=== PATIENT | male | born 1980 | race Caucasian/White ===

== ENCOUNTER 2017-01-02 04:37 | Emergency (ER) | payer OTHER ==
[2017-01-02 04:37] VITALS: BMI 25.8
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
[2017-01-02 04:50] VITALS: BP 123/66; PULSE 85; RESP 18; TEMP 97.6; O2SAT 98
== END 2017-01-02 05:46 | disposition left against medical advice (07) ==
LOC: ED 04:37
DX: M54.9 Dorsalgia, unspecified (principal)

== ENCOUNTER 2017-03-11 23:02 | Emergency (ER) | payer MEDICAID, OTHER ==
[2017-03-11 23:02] VITALS: BMI 25.8
[2017-03-11 23:18] VITALS: TEMP 97.9
[2017-03-12] MEDS ORDERED: Naproxen 550 mg Tab PO STA (00:14)
--- NOTE | 2017-03-12 00:51 | ED PDOC ---
Arrival/HPI - General Chief Complaint: Chest Pain Time Seen by Provider: 03/11/17 23:58 Historian: Patient - History of Present Illness Narrative History of Present Illness (Text): 03/12/17 01:04 36 yo M presents to the ER for atraumatic nonradiating L lower chest pain since 8 pm, worse with movement and with palpation, reports that he did move a piano today. Denies SOB, fever, chills, cough, abd pain, N/V, neck pain, back pain, leg pain / swelling, head injury. Patient has no other complaints. PMD none Past Medical History - Provider Review Nursing Documentation Reviewed: Yes - Infectious Disease Hx of Infectious Diseases: None - Past Medical History Past Medical History: No Previous - Cardiac Hx Cardiac Disorders: No Hx Hypertension: No - Pulmonary Hx Respiratory Disorders: No Hx Tuberculosis: No - Neurological Hx Neurological Disorder: No Hx Seizures: No - HEENT Hx HEENT Disorder: No - Renal Hx Renal Disorder: No - Endocrine/Metabolic Hx Endocrine Disorders: No - Hematological/Oncological Hx Blood Disorders: No Hx Cancer: No - Integumentary Hx Dermatological Disorder: No - Musculoskeletal/Rheumatological Hx Musculoskeletal Disorders: No Hx Falls: No - Gastrointestinal Hx Gastrointestinal Disorders: No - Genitourinary/Gynecological Hx Genitourinary Disorders: No Hx Sexually Transmitted Diseases: No - Psychiatric Hx Depression: Yes Hx Substance Use: Yes - Past Surgical History Past Surgical History: No Previous - Anesthesia Hx Anesthesia: No - Suicidal Assessment Feels Threatened In Home Enviroment: No Family/Social History - Physician Review Nursing Documentation Reviewed: Yes Family/Social History: No Known Family HX Smoking Status: Current Some Days Smoker Hx Alcohol Use: Yes (4 24oz Beers) Hx Substance Use: Yes Substance used: Marijuana / crack Hx Substance Use Treatment: No Allergies/Home Meds Allergies/Adverse Reactions: Allergies No Known Allergies Allergy (Verified 03/11/17 23:19) Home Medications: Home Meds Medication Instructions Recorded Confirmed No Known Home Med 03/11/17 03/11/17 Review of Systems - Review of Systems Constitutional: Normal. absent: Fatigue, Weight Change, Fevers Respiratory: Normal. absent: SOB, Cough, Sputum Cardiovascular: Normal, Chest Pain. absent: Palpitations, Edema Musculoskeletal: Normal. absent: Arthralgias, Back Pain, Neck Pain Skin: Normal. absent: Rash, Pruritis, Skin Lesions Physical Exam - Physical Exam Narrative Physical Exam (Text): 03/12/17 01:01 GENERAL APPEARANCE: Patient is sleeping comfortably but is easily arousable, alert, oriented x 3, in no acute distress. SKIN: Warm, dry; (-) cyanosis. EYES: (-) conjunctival pallor. ENMT: Mucous membranes moist. NECK: (-) tenderness, (-) stiffness, (-) lymphadenopathy, (-) JVD. CHEST AND RESPIRATORY: (-) rash, (+) chest wall tenderness to the L lower chest with no edema and no ecchymosis. Lungs: (-) rales, (-) rhonchi, (-) wheezes, (-) rub; breath sounds equal bilaterally. HEART AND CARDIOVASCULAR: (-) irregularity; (-) murmur, (-) gallop, (-) rub. ABDOMEN AND GI: Soft; (-) distention, (-) tenderness, (-) palpable pulsatile mass. EXTREMITIES: (-) deformity; (-) edema, (-) calf tenderness. (+) distal pulses. NEURO AND PSYCH: Mental status as above. Cranial nerves grossly intact; strength symmetric. Vital Signs Temp Pulse Resp BP BP Pulse Ox 03/11/17 23:19 97.9 F 74 20 127/64 96 03/11/17 23:10 97.9 F 82 18 127/64 127/64 96 Medical Decision Making ED Course and Treatment: 03/12/17 00:59 36 yo M presents to the ER for L lower chest pain since 8 pm, reports that he did move a piano today. To r/o rib fracture, pneumothorax, likely chest wall pain. Plan: - CXR - EKG - to kennedy EKG: NSR at 74 bpm, (-) acute ST changes, as read by JIMMIE. CXR: NAD, as read by PA Patient advised that official radiology read of XR is still pending and will call the patient if there is any discrepancy within 24 hours. XR results d/w the patient. On re-evaluation, patient is sleeping in bed in no acute distress, breathing easy and unlabored. Advised to follow up with the clinic in 1-2 days without fail. Advised to take otc pain medication prn for pain. Return to the emergency room at any time for any new or worsening symptoms. Patient states he fully agrees with and understands discharge instructions. States that he agrees with the plan and disposition. Verbalized and repeated discharge instructions and plan. I have given the patient opportunity to ask any additional questions. 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 Disposition/Present on Arrival - Present on Arrival Any Indicators Present on Arrival: No History of DVT/PE: No History of Uncontrolled Diabetes: No Urinary Catheter: No History of Decub. Ulcer: No History Surgical Site Infection Following: None - Disposition Have Diagnosis and Disposition been Completed?: Yes Diagnosis: Chest wall pain Disposition: HOME/ ROUTINE Disposition Time: 01:00 Patient Plan: Discharge Condition: STABLE Discharge Instructions (ExitCare): Chest Pain (ED) Print Language: ESTONIAN Additional Instructions: Thank you for letting us take care of you today. You were treated for chest wall pain. The emergency medical care you received today was directed at your acute symptoms. Return to the Emergency Department if your symptoms worsen, do not improve, or if you have any other problems. Please contact your doctor in 2 days for re-evaluation and follow up. Bring any paperwork you were given at discharge with you along with any medications you are taking to your follow up visit. Our treatment cannot replace ongoing medical care by a primary care provider (PCP) outside of the emergency department. Thank you for allowing the [facility] team to be part of your care today. Ref[place]: [facility] [place] [facility] [place] [facility] [place] - Follow up with primary
[2017-03-12 01:38] VITALS: BP 115/75; PULSE 69; RESP 18; O2SAT 98
--- NOTE | 2017-03-12 08:05 | RAD ---
HISTORY: pain COMPARISON: 06/14/2015 portable semi-erect chest x-ray. Prior CT chest without contrast report 08/06/2016 also noted TECHNIQUE: Chest PA and lateral FINDINGS: LUNGS: No active pulmonary disease. PLEURA: No significant pleural effusion identified. No pneumothorax apparent. CARDIOVASCULAR: Normal. OSSEOUS STRUCTURES: No significant abnormalities. VISUALIZED UPPER ABDOMEN: Normal. OTHER FINDINGS: EKG leads in place IMPRESSION: No active disease.
--- NOTE | 2017-03-12 10:44 | CARD ---
APPROVED REPORT EKG Measurement Heart [id number] ID [id number] <Conclusion> Normal sinus rhythm Normal ECG
== END 2017-03-12 01:39 | disposition home or self-care (01) ==
LOC: ED 23:02
DX: R07.89 Other chest pain (principal)